=== PATIENT | female | born 1955 | race American Indian/Alaskan Native ===

== ENCOUNTER 2016-04-30 21:22 | Inpatient (IN) | payer MEDICARE ==
[2016-04-30] MEDS ORDERED: ZOFRAN IV ONE (23:05)
[2016-04-30] MEDS ORDERED: ANTIVERT PO ONE (23:05)
--- NOTE | 2016-04-30 23:06 | Emergency Department Report ---
ED General Adult HPI - General Chief complaint: Nausea/Vomiting/Diarrhea Stated complaint: N/V Time Seen by Provider: 04/30/16 22:40 Source: patient, EMS (ems notes not available at time of chart dictation) Mode of arrival: Stretcher Limitations: Physical Limitation - History of Present Illness Initial comments: This is a 60-year-old female, previously unknown. PMD is Dr Bernabe. Denies chronic medical conditions. Has a past surgical history for abdominal hysterectomy. Patient is brought to the hospital by EMS for dizziness. Patient describes the sensation as room spinning and constant. It has been constant since 7:10 PM. There is no tinnitus. There is no change in auditory acuity. There is no sore throat. There is no extremity weakness. There is no extremity numbness. There is no dysarthria. There is no facial droop. Symptoms worsen when she opens up her eyes, and looks to the left, and looks to the right. -: Sudden Severity scale (0 -10): 0 Consistency: constant Improves with: other (per hpi) Worsens with: other (per hpi) Associated Symptoms: loss of appetite, malaise, weakness - Related Data Home Medications Medication Instructions Recorded Confirmed Last Taken No Known Home Medications [No 04/30/16 04/30/16 Unknown Reported Home Medications] Allergies Allergy/AdvReac Type Severity Reaction Status Date / Time acetaminophen [From Lortab] Allergy Anaphylaxis Verified 04/30/16 23:48 hydrocodone bitartrate Allergy Anaphylaxis Verified 04/30/16 23:48 [From Lortab] Penicillins Allergy Anaphylaxis Verified 04/30/16 23:48 ED Review of Systems ROS: Stated complaint: N/V Other details as noted in HPI Constitutional: malaise, weakness Eyes: denies: eye discharge, vision change ENT: denies: throat pain, epistaxis, congestion Respiratory: denies: cough Cardiovascular: denies: chest pain Gastrointestinal: nausea, vomiting Genitourinary: denies: urgency, dysuria, discharge Musculoskeletal: denies: back pain, joint swelling, arthralgia Skin: denies: rash, lesions Neurological: weakness, vertigo ED Past Medical Hx - Past Medical History Previous Medical History?: Yes Additional medical history: heart mur mur - Surgical History Past Surgical History?: No - Social History Smoking Status: Never Smoker Substance Use Type: None - Medications Home Medications: Home Medications Medication Instructions Recorded Confirmed Last Taken Type No Known Home Medications [No 04/30/16 04/30/16 Unknown History Reported Home Medications] ED Physical Exam - General Limitations: Physical Limitation General appearance: alert, in distress, obese - Head Head exam: Present: atraumatic, normocephalic - Eye Eye exam: Present: normal appearance, PERRL, EOMI. Absent: nystagmus - ENT ENT exam: Present: normal exam, normal orophraynx, mucous membranes moist, TM's normal bilaterally, normal external ear exam - Neck Neck exam: Present: normal inspection, full ROM. Absent: tenderness, meningismus - Respiratory Respiratory exam: Present: normal lung sounds bilaterally. Absent: respiratory distress, wheezes, rales, rhonchi, stridor, chest wall tenderness - Cardiovascular Cardiovascular Exam: Present: regular rate, normal rhythm, normal heart sounds. Absent: bradycardia, tachycardia, irregular rhythm, systolic murmur, diastolic murmur, rubs, gallop - GI/Abdominal GI/Abdominal exam: Present: soft, normal bowel sounds. Absent: distended, tenderness, guarding, rebound, rigid, pulsatile mass - Extremities Exam Extremities exam: Present: normal inspection, full ROM, normal capillary refill. Absent: tenderness, pedal edema, joint swelling, calf tenderness - Back Exam Back exam: Present: normal inspection, full ROM. Absent: tenderness, CVA tenderness (R), CVA tenderness (L), muscle spasm, paraspinal tenderness, vertebral tenderness - Neurological Exam Neurological exam: Present: alert, oriented X3, other (Extraocular movements intact. Tongue midline. No facial droop. Facial sensation intact to light touch in the V1, V2, V3 distribution bilaterally. 5 and 5 strength in 4 extremities.. Sensation is intact to light touch in 4 extremities.). Absent: motor sensory deficit - Psychiatric Psychiatric exam: Present: normal affect, normal mood - Skin Skin exam: Present: warm, dry, intact, normal color. Absent: rash ED Course Vital Signs 04/30/16 04/30/16 04/30/16 21:34 21:40 22:39 Temperature 97.9 F 97.9 F Pulse Rate 60 60 Respiratory 20 20 20 Rate Blood Pressure 153/83 Blood Pressure 153/83 [Left] O2 Sat by Pulse 99 99 98 Oximetry 04/30/16 05/01/16 05/01/16 23:55 00:00 00:03 Temperature Pulse Rate 76 74 Respiratory 13 18 16 Rate Blood Pressure 153/75 Blood Pressure 190/89 [Left] O2 Sat by Pulse 100 98 Oximetry 05/01/16 05/01/16 05/01/16 00:06 00:10 00:15 Temperature Pulse Rate 69 69 68 Respiratory 17 16 19 Rate Blood Pressure 153/75 153/75 177/85 Blood Pressure [Left] O2 Sat by Pulse 97 96 97 Oximetry 05/01/16 05/01/16 05/01/16 00:20 00:26 00:30 Temperature Pulse Rate 68 68 69 Respiratory 13 14 14 Rate Blood Pressure 177/85 177/85 160/80 Blood Pressure [Left] O2 Sat by Pulse 96 97 95 Oximetry 05/01/16 05/01/16 05/01/16 00:36 00:40 00:45 Temperature Pulse Rate 67 73 69 Respiratory 15 24 14 Rate Blood Pressure 160/80 160/80 168/88 Blood Pressure [Left] O2 Sat by Pulse 98 96 97 Oximetry 05/01/16 05/01/16 05/01/16 00:50 00:56 01:00 Temperature Pulse Rate 69 74 72 Respiratory 18 19 16 Rate Blood Pressure 177/85 177/85 169/89 Blood Pressure [Left] O2 Sat by Pulse 94 98 95 Oximetry 05/01/16 05/01/16 05/01/16 01:06 01:10 01:15 Temperature Pulse Rate 71 72 74 Respiratory 15 22 24 Rate Blood Pressure 169/89 169/89 176/82 Blood Pressure [Left] O2 Sat by Pulse 98 98 99 Oximetry 05/01/16 05/01/16 05/01/16 01:20 01:26 01:30 Temperature Pulse Rate 68 82 73 Respiratory 12 15 13 Rate Blood Pressure 169/89 169/89 169/89 Blood Pressure [Left] O2 Sat by Pulse 98 99 96 Oximetry - Reevaluation(s) Reevaluation #1: 05/01/16 00:02 Differential diagnosis: Posterior circulation event/thrombosis/dissection, labyrinthitis, peripheral vertigo, central vertigo Assessment and plan: 60-year-old female with constant sensation of room spinning since 7:00 PM. She has a GCS of 15, with an NIH score of 0. No obvious nystagmus, but has difficulty walking. There is no focality/laterality to her neurologic examination. I highly suspect labyrinthitis. A noncontrast CT scan of the head is negative. A CT angiogram of the head and neck is pending. Case was discussed with the stroke neurologist, Dr. Dunbar, who agrees that patient is not a TPA candidate. 05/01/16 00:05 Reevaluation #2: 05/01/16 01:[address]ogram. She understands the risks of missed posterior circulation stroke, including , disability, paralysis, permanent loss of quality of life. This conversation was witnessed by family and by nurse BRUNO GIBSON. Patient was given Decadron and IV fluids as per the request of the Hospital physician, Dr. Reynoso Reevaluation #3: 05/01/16 01:44 Patient is unable to ambulate with a steady gait. I have gone back to reassess her multiple times. She will be admitted for persistent unsteady gait. Case is discussed with the Hospital physician, Dr. Reynoso, who accepts the patient to his service. ED Medical Decision Making - Lab Data Result diagrams: 04/30/16 23:57 04/30/16 23:57 Vital Signs 04/30/16 04/30/16 04/30/16 21:34 21:40 22:39 Temperature 97.9 F 97.9 F Pulse Rate 60 60 Respiratory 20 20 20 Rate Blood Pressure 153/83 Blood Pressure 153/83 [Left] O2 Sat by Pulse 99 99 98 Oximetry - EKG Data When compared to previous EKG there are: previous EKG unavailable 05/01/16 00:04 normal sinus, 69 beats per minute, motion artifact noted in the lateral leads, not morphologically consistent with STEMI. - Radiology Data Radiology results: report reviewed, image reviewed Noncontrast CT scan of the head is negative Critical care attestation.: If time is entered above; I have spent that time in minutes in the direct care of this critically ill patient, excluding procedure time. ED Disposition Clinical Impression: Unsteady gait, Nausea & vomiting Disposition: OP ADMITTED IP TO THIS HOSP Is pt being admited?: Yes Does the pt Need Aspirin: Yes Condition: Good Referrals: FREDERICK MARTIN MD [Primary Care Provider] - 3-5 Days
--- NOTE | 2016-04-30 23:25 | Cat Scan Report ---
FINAL REPORT PROCEDURE: CT HEAD/BRAIN WO CON TECHNIQUE: Computerized tomography of the head was performed without contrast material. HISTORY: suspected stroke COMPARISON: No prior studies are available for comparison. FINDINGS: Skull and scalp: Normal. Paranasal sinuses: Normal. Ventricles and subarachnoid spaces: Normal. Cerebrum: No evidence of hemorrhage, acute infarction or mass . Cerebellum and brainstem: No evidence of hemorrhage, acute infarction or mass. Vasculature: Normal. Comments: None. IMPRESSION: Normal Examination
[2016-05-01 00:06] LABS: Basophils % (Auto) 0.3 % (0.0-1.8); Eosinophils % (Auto) 0.2 % (0.0-4.3); Hematocrit 37.3 % (30.3-42.9); Hemoglobin 12.5 gm/dl (10.1-14.3); Mean Corpuscular HGB Conc 33 % (30-34); Mean Corpuscular Hemoglobin 30 pg (28-32); Mean Corpuscular Volume 91 fl (79-97); Platelet Count 192 K/mm3 (140-440); Red Blood Count 4.13 M/mm3 (3.65-5.03); Red Cell Distribution Width 14.4 % (13.2-15.2); White Blood Count 10.3 K/mm3 (4.5-11.0)
[2016-05-01 00:24] LABS: INR 0.92 (0.87-1.13)
[2016-05-01 00:25] LABS: Partial Thromboplastin Time 24.4 Sec. (24.2-36.6)
[2016-05-01 00:29] LABS: Alanine Aminotransferase 26 units/L (7-56); Albumin 4.2 g/dL (3.9-5); Albumin/Globulin Ratio 1.2 %; Alkaline Phosphatase 65 units/L (35-129); Anion Gap 20 mmol/L; Bilirubin,Total 0.2 mg/dL (0.1-1.2); Blood Urea Nitrogen 16 mg/dL (7-17); Carbon Dioxide 23 mmol/L (22-30); Chloride 98.8 mmol/L (98-107); Creatine Kinase 164 units/L (30-135); Creatine Kinase MB 1.4 ng/mL (0.0-4.0); Glucose 224 mg/dL (65-100); Potassium 4.4 mmol/L (3.6-5.0); Sodium 137 mmol/L (137-145); Total Protein 7.7 g/dL (6.3-8.2)
[2016-05-01] MEDS ORDERED: NACL 0.9% 1000 ML 1,000 ML IV ONE (00:40)
[2016-05-01] MEDS ORDERED: DECADRON IV ONE (00:40)
[2016-05-01] MEDS ORDERED: NACL ONE (00:41)
[2016-05-01] MEDS ORDERED: BABY ASPIRIN PO ONE (01:45)
--- NOTE | 2016-05-01 03:15 | Admit Criteria Form ---
Admission Criteria Documentation: VOMITING Clinical Indications for Admission to Inpatient Care ( Place 'X' for any and all applicable criteria): Admission is indicated for ANY ONE of the following(1)(2)(3): [ X]I. Inpatient admission required rather than observation care because of ANY ONE of the following: [ ]i) Hemodynamic instability that is severe or persistent [ ]ii) Vomiting that is severe or persistent [ ]iii) Severe electrolyte abnormalities requiring inpatient care [ ]iv) Severe pain requiring acute inpatient management [ ]v) High fever or infection requiring inpatient admission as indicated by ANY ONE of the following(7)(8): [ ]1) Appropriate outpatient or observation care antimicrobial treatment unavailable, not effective, or not feasible [ ]2) Documented bacteremia [ ]3) Temp >104.9 degrees F (40.5 degrees C) (oral) [ ]4) Temp >103.1 degrees F (39.5 C) (oral) or <96.8 degrees F (36 C) (rectal) that does not respond to all emergency treatment measures [ ]vi) Acute renal failure [ ]vii) IV fluid to replace significant ongoing losses (greater than 3 L/m2 per day) [ ]viii) Parenteral nutrition regimen that must be implemented on inpatient basis [ X]ix) Other condition, treatment or monitoring requiring inpatient admission [ ]II. Complete or partial gastrointestinal obstruction [ ]III. Other cause of vomiting requiring hospitalization (eg, poisoning, increased intracranial pressure) [ ]IV. Vomiting due to significant metabolic derangement (eg, severe hypercalcemia, diabetic ketoacidosis) Extended stay beyond goal length of stay may be needed for(1)(4): [ ]a) Severe vomiting [ ]b) Persistent vomiting, vital sign changes, severe electrolyte imbalance , or diagnosed cause of vomiting that requires continued hospitalization (eg, gastrointestinal obstruction , increased intracranial pressure) [ ]c) Surgery to treat identified causes of vomiting (eg, bowel obstruction , intracranial process) [ ]d) Comorbid illness that requires inpatient care (eg, acute heart failure , renal failure) [ ]e) Need for inpatient endoscopy The original [facility] content created by [employer] has been revised. The portions of the content which have been revised are identified through the use of italic text or in bold, and [facility] has neither reviewed nor approved the modified material. All other unmodified content is copyright [facility]. Please see references footnoted in the original [facility] edition 2016 Admission Criteria Met: Yes
[2016-05-01] MEDS ORDERED: PERCOCET 5/325 PO PRN (03:33)
[2016-05-01] MEDS ORDERED: MILK OF MAGNESIA PO PRN (03:33)
[2016-05-01] MEDS ORDERED: DILAUDID IV PRN (03:33)
[2016-05-01] MEDS ORDERED: TYLENOL PO PRN (03:33)
[2016-05-01] MEDS ORDERED: DULCOLAX PR PRN (03:33)
[2016-05-01] MEDS ORDERED: ZOFRAN IV PRN (03:33)
--- NOTE | 2016-05-01 03:33 | Event Note ---
Date: 05/01/16 See H/p in reports Severe Ataxia Acute Labrynthitis Hyperglycemia--New onset T2DM
[2016-05-01] MEDS ORDERED: ANTIVERT PO PRN (03:40)
--- NOTE | 2016-05-01 06:04 | History and Physical Report ---
CHIEF COMPLAINT: Severe dizziness since 1:00 p.m. HISTORY OF PRESENT ILLNESS: A 60-year-old female comes by EMS for severe dizziness. Unable to walk. Ataxic. Feels that the room is spinning and constant even with eyes closed and eyes open and while lying down or standing, the room is spinning severely, acute onset. Also unable to walk because of the severe dizziness. PAST MEDICAL HISTORY: Significant for heart murmur. Questionable diabetes. PAST SURGICAL HISTORY: None. SOCIAL HISTORY: Does not smoke. No alcohol, no recreational drugs. Lives with family. FAMILY HISTORY: Significant for hypertension. REVIEW OF SYSTEMS: CONSTITUTIONAL: No weight loss, no weight gain, no fever, no chills. HEENT: Severe dizziness, room spinning with eyes open and while lying down. NECK: No neck stiffness. No neck pain. CARDIOVASCULAR: No chest pain. No diaphoresis. RESPIRATORY: No wheezing. No cough. GASTROINTESTINAL: No nausea, no vomiting, no diarrhea. MUSCULOSKELETAL: No joint pains. No muscle pains. CENTRAL NERVOUS SYSTEM: No syncope, no seizures. Ataxic gait. SKIN: No rashes. [id number] review of systems was otherwise negative. PHYSICAL EXAMINATION: GENERAL: Elderly female lying in bed, unable to walk. VITAL SIGNS: Blood pressure 152/83, temperature is 97.9, pulse is 60, respirations 20. HEENT: Nystagmus present in both eyes, more on looking to the left lateral side. NECK: Supple, no lymphadenopathy, no thyromegaly. LUNGS: Clear to auscultation and percussion. Good air entry. CARDIOVASCULAR: S1, S2 heard. No gallop, no murmur, no rub. Apical impulse in left fifth intercostal space and midclavicular line. ABDOMEN: Soft and benign. No hepatosplenomegaly. No guarding, no rigidity. Hernial orifices are normal. EXTREMITIES: Good pedal pulses. No pedal edema. CENTRAL NERVOUS SYSTEM: Ataxic gait present. SKIN: Normal. LABORATORY DATA: Significant for white count of 10,300, hemoglobin of 12.5, hematocrit of 37.3, platelet count of 192,000. Electrolytes are normal. Glucose is high at 224. CK is 164. DIAGNOSTIC DATA: Head CT was normal. CT angiogram of the head, the patient refused. ASSESSMENT AND PLAN: 1. Severe cachexia secondary to acute labyrinthitis. IV fluids and IV Decadron for now. 2. Acute labyrinthitis. Meclizine 25 mg t.i.d. and IV fluids. 3. New onset diabetes. Hemoglobin A1c ordered and the patient was started on metformin. The patient recounseled about new onset diabetes. 4. Deep venous thrombosis prophylaxis, Lovenox 40 mg subcutaneous daily. JOB# [id number] VSM/NTS
[2016-05-01] MEDS ORDERED: AMARYL PO SCH (08:00)
[2016-05-01] MEDS: GLUCOPHAGE PO SCH ×2 (08:50→18:42)
[2016-05-01] MEDS ORDERED: DECADRON IV SCH (10:00)
[2016-05-01] MEDS: LOVENOX SUB-Q SCH (10:19)
[2016-05-01] MEDS: PEPCID IV SCH ×2 (10:19→22:03)
[2016-05-01] MEDS: NACL 0.9% 1000 ML 1,000 ML IV SCH ×2 (10:19→19:55)
--- NOTE | 2016-05-01 11:45 | Progress Note ---
Assessment and Plan Assessment and plan: 1. Severe Ataxia / acute labrynthitis- improving; cont antivert and possible d/ c later if better 2. Newly diagnosed DM -2- cont metfomrin; d/c amaryl; monitor accucheck; consistent carb diet 3. Elevated BP- monitor 4. DVT prophylaxis- lovenox History Interval history: f/u ataxia; labryntitis Patient seen at the bedside; dizziness and feeling of spinning improved; had nausea with vomitting yesterday with diarrhea after eating chicken from [employer] but not now; feeling of spinning when she turns her head improving Hospitalist Physical - Constitutional Vitals: Temp Pulse Resp BP Pulse Ox 98.3 F 86 20 161/76 100 05/01/16 08:58 05/01/16 08:58 05/01/16 08:58 05/01/16 08:58 05/01/16 08:58 General appearance: Present: no acute distress, well-nourished - EENT Eyes: Present: PERRL, EOM intact. Absent: scleral icterus, conjunctival injection ENT: hearing intact, clear oral mucosa, no oropharyngeal erythema, no poor dentition - Neck Neck: Present: supple, normal ROM. Absent: enlarged thyroid, masses or JVD - Respiratory Respiratory effort: normal Respiratory: negative: diminished, rales, rhonchi, wheezing - Cardiovascular Rhythm: regular Heart Sounds: Present: S1 & S2. Absent: gallop - Extremities Extremities: no ischemia, pulses intact, pulses symmetrical, No edema, normal temperature Peripheral Pulses: within normal limits - Abdominal General gastrointestinal: soft, non-tender, non-distended, normal bowel sounds - Integumentary Integumentary: Present: clear - Psychiatric Psychiatric: appropriate mood/affect, intact judgment & insight, cooperative - Neurologic Neurologic: CNII-XII intact, moves all extremities Results - Labs CBC & Chem 7: 04/30/16 23:57 04/30/16 23:57 Labs: Laboratory Last Values WBC 10.3 K/mm3 (4.5-11.0) 04/30/16 23:57 RBC 4.13 M/mm3 (3.65-5.03) 04/30/16 23:57 Hgb 12.5 gm/dl (10.1-14.3) 04/30/16 23:57 Hct 37.3 % (30.3-42.9) 04/30/16 23:57 MCV 91 fl (79-97) 04/30/16 23:57 MCH 30 pg (28-32) 04/30/16 23:57 MCHC 33 % (30-34) 04/30/16 23:57 RDW 14.4 % (13.2-15.2) 04/30/16 23:57 Plt Count 192 K/mm3 (140-440) 04/30/16 23:57 Lymph % (Auto) 19.9 % (13.4-35.0) 04/30/16 23:57 [place] % (Auto) 5.5 % (0.0-7.3) 04/30/16 23:57 Eos % (Auto) 0.2 % (0.0-4.3) 04/30/16 23:57 Baso % (Auto) 0.3 % (0.0-1.8) 04/30/16 23:57 Lymph # 2.0 K/mm3 (1.2-5.4) 04/30/16 23:57 [place] # 0.6 K/mm3 (0.0-0.8) 04/30/16 23:57 Eos # 0.0 K/mm3 (0.0-0.4) 04/30/16 23:57 Baso # 0.0 K/mm3 (0.0-0.1) 04/30/16 23:57 Seg Neutrophils % 74.1 % (40.0-70.0) H 04/30/16 23:57 Seg Neutrophils # 7.6 K/mm3 (1.8-7.7) 04/30/16 23:57 PT 12.3 Sec. (12.2-14.9) 04/30/16 23:57 INR 0.92 (0.87-1.13) 04/30/16 23:57 APTT 24.4 Sec. (24.2-36.6) 04/30/16 23:57 Thrombin Time 16.7 Sec. (15.1-19.6) 04/30/16 23:57 Sodium 137 mmol/L (137-145) 04/30/16 23:57 Potassium 4.4 mmol/L (3.6-5.0) 04/30/16 23:57 Chloride 98.8 mmol/L (98-107) 04/30/16 23:57 Carbon Dioxide 23 mmol/L (22-30) 04/30/16 23:57 Anion Gap 20 mmol/L 04/30/16 23:57 BUN 16 mg/dL (7-17) 04/30/16 23:57 Creatinine 1.0 mg/dL (0.7-1.2) 04/30/16 23:57 Estimated GFR > 60 ml/min 04/30/16 23:57 BUN/Creatinine Ratio 16.00 % 04/30/16 23:57 Glucose 224 mg/dL (65-100) H 04/30/16 23:57 Hemoglobin A1c 8.0 % (4-6) H 04/30/16 23:57 Calcium 9.0 mg/dL (8.4-10.2) 04/30/16 23:57 Total Bilirubin 0.2 mg/dL (0.1-1.2) 04/30/16 23:57 AST 26 units/L (5-40) 04/30/16 23:57 ALT 26 units/L (7-56) 04/30/16 23:57 Alkaline Phosphatase 65 units/L (35-129) 04/30/16 23:57 Total Creatine Kinase 164 units/L (30-135) H 04/30/16 23:57 CK-MB (CK-2) 1.4 ng/mL (0.0-4.0) 04/30/16 23:57 CK-MB (CK-2) Rel Index 0.8 (0-4) 04/30/16 23:57 Troponin T < 0.010 ng/mL (0.00-0.029) 04/30/16 23:57 Total Protein 7.7 g/dL (6.3-8.2) 04/30/16 23:57 Albumin 4.2 g/dL (3.9-5) 04/30/16 23:57 Albumin/Globulin Ratio 1.2 % 04/30/16 23:57 - Imaging and Cardiology CT Scan - head: report reviewed (normal)
[2016-05-02 05:32] LABS: Basophils % (Auto) 0.4 % (0.0-1.8); Eosinophils % (Auto) 0.1 % (0.0-4.3); Hemoglobin 12.5 gm/dl (10.1-14.3); White Blood Count 14.9 K/mm3 (4.5-11.0)
[2016-05-02 05:40] LABS: Hematocrit 38.3 % (30.3-42.9); Mean Corpuscular HGB Conc 32 % (30-34); Mean Corpuscular Hemoglobin 30 pg (28-32); Mean Corpuscular Volume 91 fl (79-97); Red Blood Count 4.21 M/mm3 (3.65-5.03); Red Cell Distribution Width 14.4 % (13.2-15.2)
[2016-05-02 05:41] LABS: Platelet Count 181 K/mm3 (140-440)
[2016-05-02] MEDS: NACL 0.9% 1000 ML 1,000 ML IV SCH (06:06)
[2016-05-02 06:22] LABS: BUN/Creatinine Ratio 13.75; Blood Urea Nitrogen 11 mg/dL (7-17); Calcium 8.9 mg/dL (8.4-10.2); Carbon Dioxide 24 mmol/L (22-30); Chloride 105.5 mmol/L (98-107); Glucose 157 mg/dL (65-100); Potassium 3.8 mmol/L (3.6-5.0); Sodium 141 mmol/L (137-145)
[2016-05-02 06:24] LABS: Anion Gap 15 mmol/L
[2016-05-02] MEDS ORDERED: PEPCID PO SCH (10:00)
--- NOTE | 2016-05-02 10:09 | Discharge Summary ---
Providers - Providers Date of Admission: 05/01/16 03:33 Date of discharge: 05/02/16 Attending physician: CRISTIANA WOODARD 05/01/16 03:38 Consult to Dietitian/Nutrition [CONS] Routine Physician Instructions: Reason For Exam: New onset Diabetes Reason for Consult: Nutrition Recommendations Reason for Consult: Diet education 05/01/16 03:39 Physical Therapy Evaluation and Treat [CONS] Routine Comment: Reason For Exam: Ataxia Primary care physician: FREDERICK MARTIN Hospitalization Reason for admission: labyrinthitis, gastroenteritis Condition: Good Pertinent studies: CT scan of the head-normal Hospital course: Mrs. Beltre is a 60-year-old female who presented to the emergency room with nausea vomiting diarrhea and dizziness. This started after she had chicken from [employer]. She was thought to have gastroenteritis and possible labyrinthitis. She was given Antivert and antiemetics. Her symptoms resolved and she returned to baseline prior to discharge. She also was diagnosed with type 2 diabetes newly diagnosed. She was started on oral hypoglycemic agents while she was here however she refused to take the medication and wanted to follow-up with her doctor before starting any treatment. She also was noted to have elevated BP and she did not want to start any treatment. Condition at dischargestable 32 minutes spent preparing discharge Disposition: STILL A PATIENT - Discharge Diagnoses (1) Labyrinthitis Status: Acute Qualifiers: Laterality: L (2) Nausea & vomiting Status: Acute Qualifiers: Vomiting type: V Vomiting Intractability: V (3) Unsteady gait Status: Acute (4) Diabetes type 2, uncontrolled Status: Acute Qualifiers: Diabetes mellitus complication status: D Diabetes mellitus complication detail: D Diabetic retinopathy severity: D Diabetes mellitus macular edema: D Diabetes mellitus termite technician insulin use: D Chronic kidney disease stage: C (5) Elevated blood pressure Status: Acute Core Measure Documentation - Palliative Care Palliative Care/ Comfort Measures: Not Applicable - Core Measures Any of the following diagnoses?: none Exam - Constitutional Vitals: Temp Pulse Resp BP Pulse Ox 97.7 F 64 18 166/80 98 05/02/16 08:00 05/02/16 08:00 05/02/16 08:00 05/02/16 08:00 05/02/16 08:00 General appearance: Present: no acute distress, well-nourished - EENT Eyes: Present: PERRL, EOM intact. Absent: scleral icterus, conjunctival injection ENT: hearing intact, clear oral mucosa, no oropharyngeal erythema, no poor dentition - Neck Neck: Present: supple, normal ROM. Absent: enlarged thyroid, masses or JVD - Respiratory Respiratory effort: normal Respiratory: negative: diminished, rales, rhonchi, wheezing - Cardiovascular Rhythm: regular Heart Sounds: Present: S1 & S2. Absent: gallop - Extremities Extremities: no ischemia, pulses intact, pulses symmetrical, No edema, normal temperature, normal color Peripheral Pulses: within normal limits - Abdominal General gastrointestinal: Present: soft, non-tender, non-distended, normal bowel sounds Female genitourinary: Present: deferred - Rectal Rectal Exam: deferred - Integumentary Integumentary: Present: clear - Musculoskeletal Musculoskeletal: strength equal bilaterally - Psychiatric Psychiatric: appropriate mood/affect, intact judgment & insight, cooperative - Neurologic Neurologic: CNII-XII intact, moves all extremities Plan Activity: advance as tolerated Diet: low fat, low salt, diabetic, low carbohydrate Additional Instructions: f/u PCP for evaluation and treatment for Diabetes and hypertension ( patient wished to follow up with PCP before iniating any treatment Follow up with: FREDERICK MARTIN MD [Primary Care Provider] - 3-5 Days
[2016-05-02] MEDS: LOVENOX SUB-Q SCH (12:04)
[2016-05-02] MEDS: GLUCOPHAGE PO SCH (12:05)
[2016-05-02 16:15] VITALS: BP 152/84
== END 2016-05-02 16:30 | disposition home or self-care (01) | DRG 149 ==
LOC: ED 21:22 → 3A 05-01 03:33
PROVIDERS: ADMIT Internal Medicine; ATTEND Hospitalist
DX: H83.02 Labyrinthitis, left ear (principal); R27.0 Ataxia, unspecified; E11.65 Type 2 diabetes mellitus with hyperglycemia; I10 Essential (primary) hypertension; Z53.29 Procedure and treatment not carried out because of patient's decision for other reasons; K52.9 Noninfective gastroenteritis and colitis, unspecified; Z88.0 Allergy status to penicillin; Z88.5 Allergy status to narcotic agent; Z90.710 Acquired absence of both cervix and uterus; Z88.8 Allergy status to other drugs, medicaments and biological substances
CPT/HCPCS: 36415; 70450; 80048; 80053; 82550; 82553; 83036; 84484; 85025; 85610; 85670; 85730; 93005; 93010; 96361; 96374; 96375; J1100; J1650; J2405; J7030